=== PATIENT | female | born 1965 | race Caucasian/White ===

== ENCOUNTER 2016-09-07 12:09 | Emergency (ER) | payer BC, OTHER ==
[2016-09-07 12:32] VITALS: BP 110/69
--- NOTE | 2016-09-07 12:48 | EDM.PDOC ---
ED HPI GENERAL MEDICAL PROBLEM - General Chief Complaint: Laceration Stated Complaint: [id number] SLIPT FINGER OPEN Time Seen by Provider: 09/07/16 12:48 Source of Information: Reports: Patient, RN Notes Reviewed History Limitations: Reports: No Limitations - History of Present Illness INITIAL COMMENTS - FREE TEXT/NARRATIVE: Patient has a laceration of the hand at the second MCP joint sustained while washing a wine glass. She is right hand dominant. Last tetanus shot was 10 years ago, she guesses. Onset: Today Location: Reports: Upper Extremity, Right Severity: Mild Improves with: Reports: None Worsens with: Reports: None Associated Symptoms: Reports: No Other Symptoms Right Hand Pain Score (Numeric/FACES): 1 - Related Data Allergies Allergy/AdvReac Type Severity Reaction Status Date / Time No Known Allergies Allergy Verified 04/11/16 08:27 Home Meds: Home Meds Amitriptyline HCl 75 mg PO DAILY 04/07/16 [History] Zolpidem [Ambien] 5 mg PO BEDTIME 04/07/16 [History] Past Medical History HEENT History: Reports: None Cardiovascular History: Reports: None Respiratory History: Reports: None Gastrointestinal History: Reports: None Genitourinary History: Reports: None [employer]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 Musculoskeletal History: Reports: Arthritis Neurological History: Reports: None Psychiatric History: Reports: Depression Endocrine/Metabolic History: Reports: None Hematologic History: Reports: None Immunologic History: Reports: None Oncologic (Cancer) History: Reports: None Dermatologic History: Reports: None - Infectious Disease History Infectious Disease History: Reports: None - Past Surgical History HEENT Surgical History: Reports: None Cardiovascular Surgical History: Reports: None Respiratory Surgical History: Reports: None GI Surgical History: Reports: Colonoscopy Female Surgical History: Reports: Oophorectomy Musculoskeletal Surgical History: Reports: None Social & Family History - Family History Family Medical History: Noncontributory - Tobacco Use Smoking Status *Q: Current Every Day Smoker Years of Tobacco use: 30 Packs/Tins Daily: 0.5 Second Hand Smoke Exposure: Yes - Caffeine Use Caffeine Use: Reports: Coffee, Energy Drinks, Soda, Tea - Alcohol Use Days Per Week of Alcohol Use: 1 Number of Drinks Per Day: 6 Total Drinks Per Week: 6 - Recreational Drug Use Recreational Drug Use: No ED ROS GENERAL - Review of Systems Review Of Systems: ROS reveals no pertinent complaints other than HPI. ED EXAM, SKIN/RASH Exam: See Below Exam Limited By: No Limitations General Appearance: Alert, WD/WN, No Apparent Distress Eye Exam: Bilateral Eye: Normal Inspection Peripheral Pulses: 4+: Radial (R) Extremities: Other (2.7cm laceration dorsum of right index finger at proximal phalange near the MCP joint. Normal range of motion with good extension strength. Normal sensation to light touch and good perfusion. 1cm very superficial laceration of the extensor tendon, [id number]% in depth. ) Neurological: Alert, Normal Gait ED SKIN PROCEDURES - Laceration/Wound Repair Right Hand Lac/wound length in cm: 2.7 Appearance: superficial, subcutaneous, clean, other (extensor tendon 10-20% deep and is about 1 cm in length at the MCP joint and proximal phalangeal. ) Anesthetic Type: local Local anesthesia - Lidocaine (Xylocaine): 1% with epi Local anesthetic volume: 3cc Skin prep: chlorhexidine (hibiciens), providone-iodine (betadine) Saline irrigation (cc's): 3 Exploration/Debridement/Repair: wound explored, in a bloodless field, explored to base Closed with: sutures Suture size: other (5-0 nylon) # of sutures: 5 Suture type: nylon Drain placement: No Sterile dressing applied: nurse Tetanus status addressed: Yes Complications: No - Splinting Right 2nd Digit Splint site: right second finger Pre-procedure NV status: normal Post-procedure NV status: normal Splint material: aluminum-foam Splint design: extensor Applied & form fitted by: nurse Provider post-splint application NV check: NV status normal Complications: No Course - Vital Signs Last Recorded V/S: Last Vital Signs Temp 96.4 F 09/07/16 12:31 Pulse 87 09/07/16 12:31 Resp 16 09/07/16 12:31 BP 110/69 09/07/16 12:31 Pulse Ox 100 09/07/16 12:31 - Orders/Labs/Meds Orders: Active Orders 24 hr Category Date Time Status Vaccines to be Administered [RC] PER UNIT ROUTINE Care 09/07/16 12:55 Active Meds: Medications Discontinued Medications Generic Name Dose Route Start Last Admin Trade Name Freq PRN Reason Stop Dose Admin Bacitracin 1 dose 09/07/16 12:55 09/07/16 13:49 Bacitracin Oint 1 Gm TOP 09/07/16 12:56 1 dose ONETIME ONE Administration Diphtheria/Tetanus/Acell Pertussis 0.5 ml 09/07/16 12:55 09/07/16 13:02 Adacel IM 09/07/16 12:56 0.5 ml .ONCE ONE Administration Lidocaine HCl 30 ml 09/07/16 12:54 09/07/16 13:49 Xylocaine-Mpf 1% INJECT 09/07/16 12:55 30 ml ONETIME ONE Administration - Re-Assessments/Exams Free Text/Narrative Re-Assessment/Exam: 09/07/16 14:03 Dr. Funez recommended skin closure and splinting until sutures are removed. Follow up with him if needed. Departure - Departure Time of Disposition: 14:04 Disposition: Home, Self-Care 01 Condition: good Clinical Impression: Laceration of hand involving extensor tendon Qualifiers: Encounter type: initial encounter Laterality: right Qualified Code(s): S61.411A - Laceration without foreign body of right hand, initial encounter - Discharge Information Instructions: Laceration Care, Adult, [id number] Forms: ED Department Discharge Additional Instructions: Suture removal in 12 days, September 19 at primary care physician. Keep wound clean and dry for 48 hours. - My Orders Last 24 Hours: My Active Orders 09/07/16 12:55 Vaccines to be Administered [RC] PER UNIT ROUTINE - Assessment/Plan Last 24 Hours: My Active Orders 09/07/16 12:55 Vaccines to be Administered [RC] PER UNIT ROUTINE
[2016-09-07] MEDS ORDERED: Lidocaine 1% 30 ML SDV INJECT ONE (12:54)
[2016-09-07] MEDS ORDERED: Diphtheria,Pertussis(Acell),Tetanus Vaccine 0.5 ML SDV IM ONE (12:55)
[2016-09-07] MEDS ORDERED: Bacitracin Oint 1 GM U/D Packet TOP ONE (12:55)
== END 2016-09-07 14:12 | disposition home or self-care (01) ==
LOC: DL.ED 12:09
DX: S61.411A Laceration without foreign body of right hand, initial encounter (principal); M19.90 Unspecified osteoarthritis, unspecified site; F32.9 Major depressive disorder, single episode, unspecified; F17.210 Nicotine dependence, cigarettes, uncomplicated; Z23 Encounter for immunization; W25.XXXA Contact with sharp glass, initial encounter
CPT/HCPCS: 12002; 90715; 99283